=== PATIENT | female | born 1990 | race Caucasian/White ===

== ENCOUNTER → 2016-05-02 | Outpatient (CLI) | payer BC, MEDICAID | LOC: RAD 10:30 | PROVIDERS: ATTEND Nurse Practitioner Women's Health | DX: Z34.81 Encounter for supervision of other normal pregnancy, first trimester (principal) | CPT/HCPCS: 76801 ==

== ENCOUNTER 2016-11-28 00:38 | Inpatient (IN) | payer BC, MEDICAID ==
[2016-11-28] MEDS ORDERED: RINGERS SOLUTION,LACTATED 1,000 ML IV PRN (00:42)
[2016-11-28 01:07] LABS: APPEARANCE,URINE SLIGHTLY-CLOUDY; BILIRUBIN,URINE NEGATIVE (NEGATIVE); GLUCOSE, URINE 50 mg/dL (NEGATIVE); KETONES,URINE 20 mg/dL (NEGATIVE); LEUKOCYTE ESTERASE,URINE NEGATIVE (NEGATIVE); NITRITE,URINE NEGATIVE (NEGATIVE); PROTEIN,URINE NEGATIVE (NEGATIVE); URINE SPECIFIC GRAVITY 1.008; UROBILINOGEN,URINE NEGATIVE mg/dL (<2.0)
[2016-11-28 01:31] LABS: URINE METHADONE SCREEN NEGATIVE; URINE OPIATES LOW NEGATIVE; URINE PHENCYCLIDINE SCREEN NEGATIVE
[2016-11-28 01:32] LABS: URINE BARBITURATES SCREEN NEGATIVE
[2016-11-28 01:45] LABS: ABSOLUTE EOSINOPHILS # (AUTO) 0.4 10^3/uL (0.0-0.6); ABSOLUTE LYMPHOCYTES (AUTO) 2.3 10^3/uL (0.5-4.7); ABSOLUTE MONOCYTES (AUTO) 0.7 10^3/uL (0.1-1.4); ABSOLUTE NEUT (AUTO) 7.8 10^3/uL (1.7-8.2); BASOPHILS % (AUTO) 0.2 % (0-2); EOSINOPHILS % (AUTO) 3.2 % (0-6); HEMATOCRIT 34.9 % (36.0-47.0); HEMOGLOBIN 11.9 g/dL (12.0-15.5); HGB HCT DIFFERENCE 0.8; LYMPHOCYTES % (AUTO) 20.4 % (13-45); MEAN CORPUSCULAR HEMOGLOBIN 29.3 pg (27.0-33.4); MEAN CORPUSCULAR HGB CONC 34.1 g/dL (32.0-36.0); MEAN CORPUSCULAR VOLUME 86 fl (80-97); MONOCYTES % (AUTO) 6.3 % (3-13); RED BLOOD COUNT 4.06 10^6/uL (3.72-5.28); RED CELL DISTRIBUTION WIDTH 13.6 % (11.5-14.0); SEGMENTED NEUTROPHILS % (AUTO) 69.9 % (42-78); WHITE BLOOD COUNT 11.1 10^3/uL (4.0-10.5)
[2016-11-28] MEDS ORDERED: DINOPROSTONE 10 MG VAGINAL INSERT.SR ONE (02:21)
[2016-11-28] MEDS ORDERED: ZOLPIDEM TARTRATE 5 MG TABLET PO ONE (03:05)
[2016-11-28] MEDS ORDERED: ZOLPIDEM TARTRATE 5 MG TABLET ONE (03:15)
--- NOTE | 2016-11-28 08:34 | L&D Progress Notes ---
PROGRESS NOTES Datetime Report Generated by CPN: 11/28/2016 08:33 PROGRESS NOTE Plan: Continue Present Management; Cervical Ripening Informed Consent Obtained: Vaginal Delivery Vital Signs : Reviewed; Within Normal Limits Comment: Resting comfortably, Cat 1 strip, uc's q 2-3 min x 60-[address], Fernandez on unit and aware of current status VAGINAL EXAM Dilatation: 0 Effacement: 0 Station: -3 MEMBRANES Pooling: Negative Membranes: Intact FETUS A FHR - Baseline: 155 Monitoring: External US Variability: Moderate 6-25bpm Accelerations: 15X15 Decelerations: None : 39.0 Estimated Weight (gm): 3500 Presentation: Vertex SIGNATURE SIGNATURE: [id number] Assignment: Marah Fernandez MD Signature: with User ID: [email or web address] : with User ID: [email or web address]
[2016-11-28] MEDS ORDERED: OXYTOCIN/NORMAL SALINE 20 UNIT/1,000 ML RTUINJ ONE ×2 (12:56→18:45)
[2016-11-28] MEDS ORDERED: NALBUPHINE HCL INJ 10 MG/1 ML AMPULE INJ ONE (13:40)
[2016-11-28] MEDS ORDERED: OXYTOCIN/NORMAL SALINE 20 UNIT/1,000 ML RTUINJ IV PRN ×2 (13:42→21:12)
[2016-11-28] MEDS ORDERED: NALBUPHINE HCL INJ 10 MG/1 ML AMPULE ONE (13:49)
--- NOTE | 2016-11-28 16:40 | L&D Progress Notes ---
PROGRESS NOTES Datetime Report Generated by CPN: 11/28/2016 16:39 PROGRESS NOTE Vital Signs : Reviewed; Within Normal Limits Comment: VE 3-4/80/vtx/-1-0, arom, clear fluid continue to monitor closely FETUS C SIGNATURE: [id number] Assignment: Marah Fernandez MD Signature: with User ID: [email or web address] : with User ID: [email or web address]
[2016-11-28] MEDS ORDERED: PHENYLEPHRINE HCL INJ/PF 10 MG/1 ML SDV ONE (16:58)
[2016-11-28] MEDS ORDERED: FENTANYL/BUPIVACAINE/NS/PF 200 MCG/100 ML RTUINJ EPI ONE (16:58)
[2016-11-28] MEDS ORDERED: EPHEDRINE SULFATE INJ 50 MG/1 ML AMPULE ONE (16:58)
[2016-11-28] MEDS ORDERED: FENTANYL CITRATE INJ/PF 100 MCG/2 ML AMPUL ONE (16:58)
[2016-11-28] MEDS ORDERED: BUPIVACAINE HCL 0.25 % INJ/PF (2.5 MG/1 ML) 30 ML VIAL ONE (16:59)
[2016-11-28] MEDS ORDERED: MISOPROSTOL 0.2 MG TABLET ONE (18:45)
[2016-11-28] MEDS ORDERED: LIDOCAINE 1% INJ-PF (10 MG/ML) 30 ML SDV ONE (18:45)
[2016-11-28] MEDS ORDERED: IBUPROFEN 800 MG TABLET ONE (20:26)
--- NOTE | 2016-11-28 20:53 | Delivery Summary ---
Del Sum A-C Datetime Report Generated by CPN: 11/28/2016 20:52 DELIVERY PERSONNEL DELIVERY PERSONNEL: [id number] Delivery Doctor:: Marah Fernandez MD Labor and Delivery Nurse:: Moon Allen RNoperation shift supervisor Nurse:: LEONIDAS Levi Trucking Supervisor/LIFE INSURANCE AGENT: Angela Arce CST Additional Personnel: : Martha Barba RN MATERNAL INFORMATION Delivery Anesthesia: Epidural Medications After Delivery: Pitocin Bolus-Please Comment Meds After Delivery Comment: Pitocin 20 Units/1000ml NSS Estimated Blood Loss (ml): 300 Maternal Complications: Other Other Maternal Complications: GDM Provider Comments: VMI delivered in ALEXANDRO presentation though loose nucal cord. Shoulders and body delivered w/o difficulty. Cord clamped and cut and infant to maternal abdomen for NRP. Placenta delivered intact spontaneously. FF at U. Good hemostasis post laceration repair. Mother and baby stable upon provider leaving the room. Apgars 8/9 LABOR SUMMARY EDC: 12/05/2016 00:00 No. Babies in Womb: 1 Attempted: No Labor Anesthesia: Epidural LABOR INFORMATION Reason for Induction: Maternal Diabetes Onset of Labor: 11/28/2016 18:30 Complete Dilatation: 11/28/2016 18:50 Cervical Ripening Agents: Cervidil Oxytocin: Induction Group B Beta Strep: negative Antibiotics # of Doses: 0 Antibiotics Time of Last Dose: N/A Name of Antibiotic Given: N/A Steroids Given: None Reason Steroids Not Administered: Not Applicable MEMBRANES Membranes Rupture Method: Artificial Rupture of Membranes: 11/28/2016 16:31 Length of Rupture (hr): 2.82 Amniotic Fluid Color: Clear Amniotic Fluid Amount: Moderate Amniotic Fluid Odor: Normal STAGES OF LABOR Stage 1 hr: 0 Stage 1 min: 20 Stage 2 hr: 0 Stage 2 min: 30 Stage 3 hr: 0 Stage 3 min: 2 Total Time in Labor hr: 0 Total Time in Labor min: 52 VAGINAL DELIVERY Episiotomy: None Laceration #1: Perineal Laceration Extension #1: First Degree Laceration #2: Vaginal Laceration #3: Vaginal Other Laceration: Bilateral labial lacerations and 1st degree midline laceration repaired in the usual fashion Laceration Repair: Yes Laceration Repair Note: Bilateral labial lacerations and 1st degree midline laceration repaired in the usual fashion with good hemostasis. Sponge Count Correct: Yes Sharps Count Correct: Yes BABY A INFORMATION Delivery Date/Time: 11/28/2016 19:20 Method of Delivery: Vaginal Born in Route : No : N/A Forceps: N/A Vacuum Extraction: N/A Shoulder Dystocia : No PRESENTATION/POSITION BABY A Presentation: Cephalic Cephalic Presentation: Vertex Vertex Position: Left Occipital Anterior Breech Presentation: N/A PLACENTA INFORMATION BABY A Placenta Delivery Time : 11/28/2016 19:22 Placenta Method of Delivery: Spontaneous Placenta Status: Delivered SCORES BABY A Heart Rate 1 min: >100 bpm Resp Effort 1 min: Good Cry Reflex Irritability 1 min: Cough or Sneeze or Pulls Away Muscle Tone 1 min: Active Motion Color 1 min: Blue/Pale Resuscitation Effort 1 min: Tactile Stimulation SCORE 1 MIN: 8 Heart Rate 5 min: >100 bpm Resp Effort 5 min: Good Cry Reflex Irritability 5 min: Cough or Sneeze or Pulls Away Muscle Tone 5 min: Active Motion Color 5 min: Body [place], Extremities Blue Resuscitation Effort 5 min: Tactile Stimulation SCORE 5 MIN: 9 INFORMATION BABY A Gestational Age at Delivery: 39.0 Gestational Status: Full Term- 39- 40.6 Weeks Outcome : Liveborn Infant Condition : Stable Infant Sex: Male IDENTIFICATION BABY A Infant Verification Date/Time: 11/28/2016 19:38 ID Band Number: [id number] Mother's Name Verified: Yes RN Verifying : Zonia Roberts RN/D. [place] WEIGHT/LENGTH BABY A Infant Birthweight (gm): 3550 Weight (lb): 7 Infant Weight (oz): 13 Length (in): 20.50 Length (cm): 52.07 CORD INFORMATION BABY A No. Cord Vessels: 3 Nuchal Cord : Around Neck x1, Loose Cord Blood Taken: Yes-For Storage (Mom's Blood type +) Suction: None ASSESSMENT BABY A Infant Complications: None Physical Findings at Delivery: Within Normal Limits Skin to Skin: Yes Skin to Skin Time (min): 60 BABY B INFORMATION : N/A SIGNATURES Signature: with User ID: [email or web address]
[2016-11-28] MEDS ORDERED: ACETAMINOPHEN 650 MG SUPP.RECT PR PRN (21:12)
[2016-11-28] MEDS ORDERED: ACETAMINOPHEN WITH CODEINE #3 TABLET PO PRN ×2 (21:12)
[2016-11-28] MEDS ORDERED: ZOLPIDEM TARTRATE 5 MG TABLET PO PRN (21:12)
[2016-11-28] MEDS ORDERED: PROMETHAZINE HCL 25 MG SUPP.RECT PR PRN (21:12)
[2016-11-28] MEDS ORDERED: PROMETHAZINE HCL 25 MG TABLET PO PRN (21:12)
[2016-11-28] MEDS ORDERED: PSEUDOEPHEDRINE HCL 30 MG TABLET PO PRN (21:12)
[2016-11-28] MEDS ORDERED: MEASLES,MUMPS&RUBELLA VACC/PF 0.5 ML VIAL SUBCUT PRN (21:12)
[2016-11-28] MEDS ORDERED: PROMETHAZINE HCL INJ 25 MG/1 ML VIAL IV PRN (21:12)
[2016-11-28] MEDS ORDERED: BENZOCAINE/MENTHOL AEROSOL SPRAY 56 ML TOP PRN (21:12)
[2016-11-28] MEDS ORDERED: GLYCERIN/WITCH HAZEL LEAF 1 EACH MED..PAD TP PRN (21:12)
[2016-11-28] MEDS ORDERED: DIBUCAINE 1% OINTMENT 28 GM TP PRN (21:12)
[2016-11-28] MEDS ORDERED: DIPH/PERTUSS(ACELL)/TETANUS VAC/PF 0.5 ML SYR (>=10YO) IM PRN (21:12)
[2016-11-28] MEDS ORDERED: MAGNESIUM HYDROXIDE SUSP 30 ML UDCUP PO PRN (21:12)
[2016-11-28] MEDS ORDERED: NA PHOS,M-B/NA PHOS,DI-BA (ADULT) 133 ML ENEMA PR PRN (21:12)
[2016-11-28] MEDS ORDERED: DIPHENHYDRAMINE HCL 25 MG CAPSULE PO PRN (21:12)
--- NOTE | 2016-11-28 21:32 | Admission Physical ---
Datetime Report Generated by CPN: 11/28/2016 21:31 CURRENT ADMISSION Chief Complaint: Scheduled Induction of Labor Indication for Induction: Maternal Diabetes Indication for Induction: Term, Intrauterine Admit Plan: Admit to Unit; Initiate Labor Induction Protocol ALLERGIES Medication Allergies: Yes Medication Allergies: Sulfa (Sulfonamide Antibiotics)/SV/Hives (02/10/2016) Latex: No Latex Allergies OBSTETRICAL HISTORY EDC: 12/05/2016 00:00 : 2 Para: 1 Term: 1 : 0 SAB: 0 IAB: 0 Livin Gestational Diabetes: Yes Rh Sensitization: No Incompetent Cervix: No CHRISTIANNE: No Infertility: No ART Treatment: No Uterine Anomaly: No IUGR: No Hx Previous C/S: No Macrosomia: No Hx Loss/Stillborn: No PIH: No Hx : No Placenta Previa/Abruption: No Depression/PP Depression: Yes PTL/PROM: No Post Hemorrhage: No Current Procedures: Ultrasound Obstetrical History Comments: 2011 40 weeks baby boy 2016 current SEE RECORDS Alcohol: No Marijuana : No Cocaine: No Other Illicit Drugs: No Cigarettes: Never Smoker. [id number] MEDICAL HISTORY Diabetes: Yes Diabetes Type: Gestational Diabetes Blood Transfusion: No Pulmonary Disease (Asthma, TB): Yes Breast Disease: No Hypertension: No Neuro Intensivist Physician Surgery: No Heart Disease: No Hosp/Surgery: Yes Autoimmune Disorder: No Anesthetic Complications: No Kidney Disease: No Abnormal Pap Smear: No Neuro/Epilepsy: No Psychiatric Disorders: No Other Medical Diseases: No Hepatitis/Liver Disease: No Significant Family History: No Varicosities/Phlebitis: No Trauma/Violence : No Thyroid Dysfunction: No Medical History Comments: 2013 surgery-Mastoidectomy INFECTIOUS HISTORY Gonorrhea: No Genital Herpes: No Chlamydia: No Tuberculosis: No Syphilis: No Hepatitis: No HIV/AIDS Exposure: No Rash or Viral Illness: No HPV: No PHYSICAL EXAM General: Normal HEENT: Normal Neurologic: Normal Thyroid: Normal Heart: Normal Lungs: Normal Breast: Normal Back: Normal Abdomen: Normal Genitourinary Exam: Normal Extremities: Normal DTRs: Normal Pelvic Type: Adequate Vital Signs: Reviewed VAGINAL EXAM Dilatation: 0 Effacement: 0 Station: -3 MEMBRANES Pooling: Negative Membranes: Intact FETUS A EGA: 39.0 Monitoring: External US FHR- Baseline: 150 Variability: Moderate 6-25bpm Accelerations: 15X15 Decelerations: None FHR Category: Category I Estimated Weight (gm): 3500 Presentation: Vertex PLANS FOR LABOR AND DELIVERY Labor and Delivery: None Pain Management: Epidural Feeding Preference: Formula Benefit of Breast Feed Discussed: Yes Circumcision: Yes INFORMED CONSENT Informed Consent Obtained: Vaginal Delivery Signature: with User ID: [email or web address]
[2016-11-29] MEDS: IBUPROFEN 800 MG TABLET PO SCH ×4 (00:23→21:13)
[2016-11-29] MEDS: FAMOTIDINE 20 MG TABLET PO SCH ×3 (00:23→21:13)
[2016-11-29 07:16] LABS: HEMOGLOBIN 10.7 g/dL (12.0-15.5); HGB HCT DIFFERENCE 1.1; MEAN CORPUSCULAR HEMOGLOBIN 29.7 pg (27.0-33.4); MEAN CORPUSCULAR HGB CONC 34.5 g/dL (32.0-36.0); MEAN CORPUSCULAR VOLUME 86 fl (80-97); RED CELL DISTRIBUTION WIDTH 13.6 % (11.5-14.0); WHITE BLOOD COUNT 14.1 10^3/uL (4.0-10.5)
--- NOTE | 2016-11-29 07:33 | PDOC PROGRESS REPORT ---
Subjective-OB Subjective: Post Delivery Day: 25 year old. Denies any needs at this time Doing well, tired, hsb at BS, eating well, scant bleeding Physical Exam (OB) Vital Signs: Temp Pulse Resp BP Pulse Ox 98.5 F 100 18 116/60 97 11/28/16 21:36 11/28/16 21:38 11/28/16 21:36 11/28/16 21:36 11/28/16 21:36 Intake & Output 11/28/16 11/29/16 11/30/16 06:59 06:59 06:59 Weight 95.75 kg - Lochia Lochia Amount: Small 10-25 ml Lochia Color: Rubra/Red - Abdomen Description: Soft, Round Hernia Present: No Fundal Description: Firm, Midline Fundal Height: u/u - u/2 Objective-Diagnostic Laboratory: 11/29/16 07:09 11/29/16 07:09 WBC 14.1 H RBC 3.60 L Hgb 10.7 L Hct 31.0 L MCV 86 MCH 29.7 MCHC 34.5 RDW 13.6 Plt Count 173 Assessment and Plan(PN) - Assessment and Plan (1) Normal vaginal delivery Is this a current diagnosis for this admission?: Yes (2) Anemia Qualifiers: Anemia type: iron deficiency Is this a current diagnosis for this admission?: Yes - Time Spent with Patient Time with patient: Less than 15 minutes Medications reviewed and adjusted accordingly: Yes - Disposition Anticipated Discharge: Home Within: within 24 hours
[2016-11-29] MEDS: PRENATAL VITAMIN W-O CA NO5/FE FUMARATE/FA CAPSULE PO SCH (09:24)
[2016-11-29] MEDS: FERROUS SULFATE 325 MG TABLET PO SCH ×2 (09:24→17:44)
[2016-11-29] MEDS: DOCUSATE SODIUM 100 MG CAPSULE PO SCH ×2 (09:25→17:43)
[2016-11-29] MEDS: SENNOSIDES/DOCUSATE 8.6-50 MG 1 EACH TABLET PO SCH (09:25)
[2016-11-30] MEDS: IBUPROFEN 800 MG TABLET PO SCH (06:09)
[2016-11-30 08:40] VITALS: BP 113/64
[2016-11-30] MEDS: FERROUS SULFATE 325 MG TABLET PO SCH (09:50)
[2016-11-30] MEDS: SENNOSIDES/DOCUSATE 8.6-50 MG 1 EACH TABLET PO SCH (09:50)
[2016-11-30] MEDS: PRENATAL VITAMIN W-O CA NO5/FE FUMARATE/FA CAPSULE PO SCH (09:50)
[2016-11-30] MEDS: DOCUSATE SODIUM 100 MG CAPSULE PO SCH (09:51)
[2016-11-30] MEDS: FAMOTIDINE 20 MG TABLET PO SCH (10:32)
[2016-11-30] MEDS ORDERED: INFLUENZA ADLT QUAD (36MOS+) 2017-18 VAC 0.5 ML SYR IM PRN (11:30)
--- NOTE | 2016-11-30 11:50 | PDOC PROGRESS REPORT ---
Subjective-OB Subjective: Post Delivery Day: 25 year old. Denies any needs at this time Doing well, no c/o ready to go home, scant bleeding, bottle feeding, ambulating Physical Exam (OB) Vital Signs: Temp Pulse Resp BP Pulse Ox 98.1 F 88 18 113/64 99 11/30/16 08:46 11/30/16 08:46 11/30/16 08:46 11/30/16 07:49 11/30/16 08:46 - PIH/Pre-Eclampsia DTR's: 2 + Clonus: Negative Headache: Absent Epigastric Pain: No Visual Changes: No - Lochia Lochia Amount: Scant < 10 ml Lochia Color: Rubra/Red - Abdomen Description: Soft, Round Hernia Present: No Fundal Description: Firm, Midline Fundal Height: u/u - u/2 Objective-Diagnostic Laboratory: 11/29/16 07:09 Assessment and Plan(PN) - Assessment and Plan (1) Normal vaginal delivery Is this a current diagnosis for this admission?: Yes (2) Anemia Qualifiers: Anemia type: iron deficiency Is this a current diagnosis for this admission?: Yes - Time Spent with Patient Time with patient: Less than 15 minutes Medications reviewed and adjusted accordingly: Yes - Disposition Anticipated Discharge: Home Within: Other - home today
--- NOTE | 2016-11-30 11:53 | PDOC DISCHARGE SUMMARY ---
Final Diagnosis Discharge Date: 11/30/16 - Final Diagnosis (1) Normal vaginal delivery Is this a current diagnosis for this admission?: Yes (2) Anemia Is this a current diagnosis for this admission?: Yes Discharge Data - Discharge Medication Home Medications: Albuterol Sulfate [Proair HFA] 2 puff IH Q4 PRN 04/11/14 Fluticasone Propionate [Flonase Nasal [place] 50 Mcg/[place] 16 gm] 1 inh IH DAILY 11/28/16 Fluticasone Propionate [Flovent Diskus] 1 inh IH BID 11/28/16 Vit/Iron Fum/Folic AC [ Tablet] 1 tab PO DAILY 11/28/16 Gestational Age: 39 Reason(s) for Admission: Induction of Labor, Gestional Diabetes Procedures: NST, Ultrasound Intrapartum Procedure(s): Spontaneous Vaginal Delivery Complication(s): Laceration-Perineal, Laceration-Labial Laceration-Degree: 1st - [place] Data Baby 1 Male at 1 minute: 8 at 5 minutes: 9 Weight: 3.544 kg Home with Mother: Yes Complications: No - Diagnosis Test Laboratory: Temp Pulse Resp BP Pulse Ox 98.1 F 88 18 113/64 99 11/30/16 08:46 11/30/16 08:46 11/30/16 08:46 11/30/16 07:49 11/30/16 08:46 11/28/16 11/28/16 11/29/16 00:50 01:18 07:09 RBC 4.06 3.60 L Hgb 11.9 L 10.7 L Hct 34.9 L 31.0 L Urine Opiates Screen NEGATIVE - Discharge information/Instructions Discharge Activity: Activity As Tolerated, No Lifting Over 10 Pounds, Pelvic Rest Discharge Diet: As Tolerated, Regular Disposition: HOME, SELF-CARE Follow up with: [facility] in: 4, Weeks
== END 2016-11-30 14:56 | disposition home or self-care (01) | DRG 775 ==
LOC: LR 00:38 → 2S 21:30
PROVIDERS: ADMIT Obstetrics & Gynecology; ATTEND Student in an Organized Health Care Education/Training Program
PROC: 10E0XZZ Delivery of Products of Conception, External Approach (ICD-10-PCS; principal; 2016-11-28)
PROC: 0HQ9XZZ Repair Perineum Skin, External Approach (ICD-10-PCS; 2016-11-28)
PROC: 3E0234Z Introduction of Serum, Toxoid and Vaccine into Muscle, Percutaneous Approach (ICD-10-PCS; 2016-11-30)
PROC: 3E0234Z Introduction of Serum, Toxoid and Vaccine into Muscle, Percutaneous Approach (ICD-10-PCS; 2016-11-30)
DX: O24.429 Gestational diabetes mellitus in childbirth, unspecified control (principal); O99.02 Anemia complicating childbirth; O70.0 First degree perineal laceration during delivery; O69.81X0 Labor and delivery complicated by cord around neck, without compression, not applicable or unspecified; D50.9 Iron deficiency anemia, unspecified; Z23 Encounter for immunization; Z3A.39 39 weeks gestation of pregnancy; Z37.0 Single live birth; Z88.2 Allergy status to sulfonamides
CPT/HCPCS: 36415; 80307; 81005; 85025; 85027; 86592; 86850; 86900; 86901; 90686; 90707; 94760; J2300; J2370; J2590; J3010; J3490

== ENCOUNTER 2017-01-20 21:14 | Observation (INO) | payer BC, MEDICAID ==
--- NOTE | 2017-01-20 22:43 | ER Document Report ---
ED GI/ - General Chief Complaint: Abdominal Pain Stated Complaint: PELVIC PAIN Time Seen by Provider: 01/20/17 22:22 Notes: Patient is a 26-year-old female that comes emergency department for chief complaint of lower abdomen/pelvic pain for the past several days but worsening. She had an IUD placed by Dr. Fernandez 5 days ago. She reports mild vaginal bleeding/spotting. She reports minimal discharge. She denies fever/chills, nausea/vomiting. She states she felt for the strings and could not feel them. She has had an IUD before. TRAVEL OUTSIDE OF THE [place] IN LAST 30 DAYS: No - Related Data Allergies/Adverse Reactions: Sulfa (Sulfonamide Antibiotics) Allergy (Severe, Verified 02/10/16 17:53) Hives Past Medical History - General Information source: Patient - Social History Smoking Status: Never Smoker Frequency of alcohol use: None Drug Abuse: None Lives with: Family Family History: Reviewed & Not Pertinent Patient has suicidal ideation: No Patient has homicidal ideation: No - Past Medical History Cardiac Medical History: Denies: Hx Coronary Artery Disease, Hx Heart Attack, Hx Hypertension Pulmonary Medical History: Reports: Hx Asthma, Hx Bronchitis Denies: Hx COPD, Hx Pneumonia Neurological Medical History: Denies: Hx Cerebrovascular Accident, Hx Seizures Renal/ Medical History: Denies: Hx Peritoneal Dialysis Musculoskeltal Medical History: Denies Hx Arthritis Psychiatric Medical History: Reports: Hx Depression Surgical Hx: Negative Past Surgical History: Denies: Hx Hysterectomy - Immunizations Hx Diphtheria, Pertussis, Tetanus Vaccination: Yes Review of Systems - Review of Systems Constitutional: No symptoms reported EENT: No symptoms reported Cardiovascular: No symptoms reported Respiratory: No symptoms reported Gastrointestinal: See HPI Genitourinary: See HPI Female Genitourinary: See HPI Musculoskeletal: No symptoms reported Skin: No symptoms reported Hematologic/Lymphatic: No symptoms reported Neurological/Psychological: No symptoms reported Physical Exam - Vital signs Vitals: Temp Pulse Resp BP Pulse Ox 97.9 F 83 16 124/88 H 100 01/20/17 21:41 01/20/17 21:41 01/20/17 21:41 01/20/17 21:41 01/20/17 21:41 Interpretation: Normal - General General appearance: Appears well, Alert In distress: None - HEENT Head: Normocephalic, Atraumatic Eyes: Normal Pupils: PERRL - Respiratory Respiratory status: No respiratory distress Chest status: Nontender Breath sounds: Normal Chest palpation: Normal - Cardiovascular Rhythm: Regular Heart sounds: Normal auscultation Murmur: No - Abdominal Inspection: Normal Distension: No distension Bowel sounds: Normal Tenderness: Tender - There is tenderness in both lower abdomen/pelvic quadrants , no specific guarding, no rebound tenderness, no rigidity. Patient winces with palpation. - Genitourinary External exam: Normal Speculum exam: Cervix closed, Vaginal discharge - Minimal whitish vaginal discharge Vaginal bleeding: None Bimanuel exam: No: Cervical motion tender - Back Back: Normal, Nontender - Extremities General upper extremity: Normal inspection, Nontender, Normal color, Normal ROM , Normal temperature General lower extremity: Normal inspection, Nontender, Normal color, Normal ROM , Normal temperature, Normal weight bearing. No: Jeff's sign - Neurological Neuro grossly intact: Yes Cognition: Normal Orientation: AAOx4 [place] Coma Scale Eye Opening: Spontaneous Wiley Coma Scale Verbal: Oriented Wiley Coma Scale Motor: Obeys Commands Wiley Coma Scale Total: 15 Speech: Normal Motor strength normal: LUE, RUE, LLE, RLE Sensory: Normal - Psychological Associated symptoms: Normal affect, Normal mood - Skin Skin Temperature: Warm Skin Moisture: Dry Skin Color: Normal Course - Re-evaluation Re-evalutation: Patient with bilateral lower pelvic tenderness on exam, she states she feels like it is in the right side worse than the left. This is not specifically identified on my exam. Urinalysis unremarkable, hCG is negative, wet mount unremarkable. I cannot visualize any strings on pelvic examination. Pelvic examination is unremarkable. No current bleeding. Ultrasound with no acute or specific abnormalities. KUB was performed, shows very questionable location of the IUD. Discussed with Dr. Luis, agrees with CAT scan to specify the exact location. IUD is located in the pelvis, outside of the uterus. Discussed with patient. Discussed with Dr. Zarate, ASSOCIATE PROFESSOR PHYSICIAN on-call, patient will be admitted to gynecology service pending being taken to the operating room for removal of the IUD. Patient states satisfaction and is in full agreement with this. She is requesting pain medication now that she knows she is not driving home. Patient will be kept n.p.o., given IV fluids, medication. Last meal was 7:30 PM. - Vital Signs Vital signs: Temp Pulse Resp BP Pulse Ox 98.4 F 89 18 114/64 98 01/21/17 06:04 01/21/17 06:04 01/21/17 06:04 01/21/17 06:04 01/21/17 06:04 - Laboratory Result Diagrams: 01/21/17 02:25 Laboratory results interpreted by me: 01/21/17 02:25 RDW 14.2 H Eosinophils % 6.4 H Discharge - Discharge Clinical Impression: Pelvic pain IUD complication Qualifiers: Device complication type: unspecified Encounter type: initial encounter Qualified Code(s): T83.9XXA - Unspecified complication of genitourinary prosthetic device, implant and graft, initial encounter Condition: Stable Disposition: ADMITTED OBSERVATION Admitting Provider: [facility] Admitted: Labor and Delivery
[2017-01-20] MEDS ORDERED: NAPROXEN 250 MG TABLET PO ONE (22:58)
--- NOTE | 2017-01-21 00:21 | RADIOLOGY REPORT (SQ) ---
EXAM DESCRIPTION: U/S NON OB PEL TV W/DOPPLER COMPLETED DATE/TIME: 01/20/2017 11:57 pm REASON FOR STUDY: sharp right pelvic pain COMPARISON: 06/12/2014. TECHNIQUE: Dynamic and static grayscale images acquired of the pelvis via transvaginal approach and recorded on PACS. Additional selected color Doppler and spectral images recorded. LIMITATIONS: None. FINDINGS: UTERUS: Contour normal. No mass. ENDOMETRIAL STRIPE: No focal or generalized thickening. No masses. IUD not identified. CERVIX: No nabothian cysts. RIGHT OVARY: No abnormal masses. Peripheral subcentimeter cystic follicle distribution. RIGHT OVARY DOPPLER: Normal arterial vascular flow without evidence for torsion. LEFT OVARY: No abnormal masses. Peripheral subcentimeter cystic follicle distribution. LEFT OVARY DOPPLER: Normal arterial vascular flow without evidence for torsion. FREE FLUID: None noted. OTHER: No other significant finding. MEASUREMENTS: UTERUS: 8.5 cm. ENDOMETRIAL STRIPE: 0.6 cm thickness. RIGHT OVARY: 3.7 cm appear LEFT OVARY: 3.9 cm. IMPRESSION: 1. IUD is not sonographically identified, as queried. 2. Atypical ovarian morphology is within normal limits but may also be seen as polycystic ovarian phenomena. TECHNICAL DOCUMENTATION: JOB ID: [id number] [employer]- All Rights Reserved
[2017-01-21 00:42] LABS: APPEARANCE,URINE CLEAR; BILIRUBIN,URINE NEGATIVE (NEGATIVE); GLUCOSE, URINE NEGATIVE (NEGATIVE); KETONES,URINE NEGATIVE (NEGATIVE); LEUKOCYTE ESTERASE,URINE NEGATIVE (NEGATIVE); NITRITE,URINE NEGATIVE (NEGATIVE); PROTEIN,URINE NEGATIVE (NEGATIVE); URINE SPECIFIC GRAVITY 1.008; UROBILINOGEN,URINE NEGATIVE mg/dL (<2.0)
[2017-01-21 01:00] LABS: CHLAM PCR NOT DETECTED (NOT DETECT)
--- NOTE | 2017-01-21 01:49 | RADIOLOGY REPORT (SQ) ---
EXAM DESCRIPTION: KUB/ABDOMEN (SINGLE VIEW) COMPLETED DATE/TIME: 01/21/2017 1:28 am REASON FOR STUDY: pelvis - identify IUD presence/location COMPARISON: None. NUMBER OF VIEWS: One view. TECHNIQUE: Supine radiographic image of the abdomen acquired. LIMITATIONS: None. FINDINGS: BOWEL GAS PATTERN: Normal bowel gas pattern. No dilated loops. Moderate right colonic sto ol retention. CALCIFICATIONS: No suspicious calcifications. SOFT TISSUES: No gross mass or suggestion of organomegaly. HARDWARE: IUD device overlies the left paracentral S2 vertebral body and correlated with concurrent s onogram may indicate uterine expulsion of the IUD. BONES: No acute fracture. No worrisome bone lesions. OTHER: No other significant finding. IMPRESSION: Uterine expulsion/displaced of an IUD. TECHNICAL DOCUMENTATION: JOB ID: [id number] [employer]- All Rights Reserved
[2017-01-21 02:38] LABS: ABSOLUTE EOSINOPHILS # (AUTO) 0.6 10^3/uL (0.0-0.6); ABSOLUTE LYMPHOCYTES (AUTO) 2.6 10^3/uL (0.5-4.7); ABSOLUTE MONOCYTES (AUTO) 0.4 10^3/uL (0.1-1.4); ABSOLUTE NEUT (AUTO) 5.3 10^3/uL (1.7-8.2); BASOPHILS % (AUTO) 0.1 % (0-2); EOSINOPHILS % (AUTO) 6.4 % (0-6); HEMATOCRIT 40.9 % (36.0-47.0); HEMOGLOBIN 13.8 g/dL (12.0-15.5); HGB HCT DIFFERENCE 0.5; LYMPHOCYTES % (AUTO) 29.2 % (13-45); MEAN CORPUSCULAR HEMOGLOBIN 28.6 pg (27.0-33.4); MEAN CORPUSCULAR HGB CONC 33.7 g/dL (32.0-36.0); MEAN CORPUSCULAR VOLUME 85 fl (80-97); MONOCYTES % (AUTO) 4.9 % (3-13); RED BLOOD COUNT 4.81 10^6/uL (3.72-5.28); RED CELL DISTRIBUTION WIDTH 14.2 % (11.5-14.0); SEGMENTED NEUTROPHILS % (AUTO) 59.4 % (42-78)
--- NOTE | 2017-01-21 03:29 | RADIOLOGY REPORT (SQ) ---
EXAM DESCRIPTION: CT PELVIS WITHOUT COMPLETED DATE/TIME: 01/21/2017 3:17 am REASON FOR STUDY: identify location of the IUD COMPARISON: None. TECHNIQUE: CT scan of the pelvis performed without intravenous or oral contrast. Images reviewed wi th soft tissue and bone windows. Reconstructed coronal and sagittal MPR images reviewed. All images stored on PACS. All CT scanners at this facility use dose modulation, iterative reconstruction, and/or weight based d osing when appropriate to reduce radiation dose to as low as reasonably achievable (ALARA). [facility]: Dose Right [facility]: CareDose [facility]: Dose Right [facility]: Teradose 4D [facility]: Smart Cream Style RADIATION DOSE: CT Rad equipment meets quality standard of care and radiation dose reduction techniq ues were employed. CTDIvol: 14.6 mGy. DLP: 421 mGy-cm. mGy. LIMITATIONS: None. FINDINGS: PELVIC BONES: No acute fracture. No worrisome bone lesions. VISUALIZED SPINE: No acute findings. HIP(S): No acute fracture or dislocation. No worrisome bone lesions. PELVIC SOFT TISSUES: No significant findings. Normal appendix. No free fluid. EXTRAPELVIC SOFT TISSUES: No significant findings. OTHER: IUD device in the anterior left paracentral, extra uterine pelvic cavity, anterior to the uter us. IMPRESSION: Intrapelvic, uterine expulsion of an IUD. TECHNICAL DOCUMENTATION: JOB ID: [id number] Quality ID # [id number]: Final reports with documentation of one or more dose reduction techniques (e.g., Au tomated exposure control, adjustment of the mA and/or kV according to patient size, use of iterative reconstruction technique) 2010 [employer]- All Rights Reserved
[2017-01-21] MEDS ORDERED: NORMAL SALINE 1000 ML 1,000 ML IV ONE (04:03)
[2017-01-21] MEDS ORDERED: MORPHINE SULFATE 10 MG/ML INJ IV ONE (04:03)
[2017-01-21] MEDS ORDERED: ONDANSETRON HCL INJ/PF 4 MG/2 ML SDV IV ONE (04:03)
--- NOTE | 2017-01-21 06:38 | HISTORY AND PHYSICAL E ---
History and Physical NAME: ALPESH BAPTISTE : 1990 AGE: 26Y ADMITTED: 01/21/2017 ROOM: 215 CHIEF COMPLAINT: Abdominal pain. HISTORY: Patient is a 26-year-old female, 2, para 2, who had a child vaginally in October and then had an IUD placed 5 days ago. Her last menstrual period is uncertain. She presents to the ER with pain and states she cannot feel the strings. ALLERGIES: SULFA. PAST MEDICAL HISTORY: Significant for some ear surgery. She also reports seasonal allergies and asthma. MEDICATIONS: Includes allergy medication. SOCIAL HISTORY: Shows her to be a nonsmoker. REVIEW OF SYSTEMS: She denies heart or lung problems. PHYSICAL EXAMINATION: VITAL SIGNS: She is afebrile. Vital signs are stable. GENERAL APPEARANCE: Alert, oriented, and appropriate. NECK: Supple. LUNGS: Clear. HEART: Regular rate and rhythm. ABDOMEN: Soft. PELVIC: Normal external genitalia. Cervix is without lesions and no strain can be seen. EXTREMITIES: No clubbing, cyanosis, or edema. LABORATORY STUDIES: A normal white count and normal hemoglobin, hematocrit. X-ray studies the most pertinent shows a CT with an IUD present anterior to the uterus and the sono showing no IUD in the uterus. ASSESSMENT: Complication from an IUD. PLAN: Since it cannot be removed vaginally, we will proceed with laparoscopy for removal of the IUD. DICTATING PHYSICIAN: ISRAEL BLACKWOOD M.D. [id number] Y#: [id number] ID: [id number] JOB#: [id number] ACCT: [id number] cc:ISRAEL BLACKWOOD M.D. >
[2017-01-21] MEDS ORDERED: LIDOCAINE 2% INJ-PF (20 MG/ML) 10 ML AMPUL ONE (07:08)
[2017-01-21] MEDS ORDERED: PROPOFOL INJ 200 MG/20 ML VIAL IV ONE (07:09)
[2017-01-21] MEDS ORDERED: MIDAZOLAM 2 MG/2 ML INJ ONE (07:09)
[2017-01-21] MEDS ORDERED: ONDANSETRON HCL INJ/PF 4 MG/2 ML SDV ONE (07:09)
[2017-01-21] MEDS ORDERED: DEXAMETHASONE SOD PHOSPHATE INJ 4 MG/1 ML VIAL ONE ×2 (07:09→12:42)
[2017-01-21] MEDS ORDERED: FENTANYL CITRATE INJ/PF 100 MCG/2 ML AMPUL ONE (07:09)
[2017-01-21] MEDS ORDERED: IBUPROFEN INJ 800 MG/8 ML VIAL IV ONE (07:09)
[2017-01-21] MEDS ORDERED: RINGERS SOLUTION,LACTATED 1,000 ML IV PRN (07:53)
[2017-01-21] MEDS ORDERED: LIDOCAINE 1%/EPINEPHRINE INJ 20 ML VIAL ONE (08:32)
[2017-01-21] MEDS ORDERED: SCOPOLAMINE HYDROBROMIDE 1.5 MG PATCH.TD72 ONE (08:47)
[2017-01-21] MEDS ORDERED: HYDROMORPHONE HCL INJ/PF 2 MG/ML AMPULE ONE (08:53)
[2017-01-21] MEDS ORDERED: ACETAMINOPHEN 100 ML IV ONE (08:53)
[2017-01-21] MEDS ORDERED: DIPHENHYDRAMINE HCL 50 MG/ML VIAL IV PRN (09:35)
[2017-01-21] MEDS ORDERED: MEPERIDINE HCL/PF INJ 25 MG/1 ML DISP.SYRIN IV PRN (09:35)
[2017-01-21] MEDS ORDERED: ONDANSETRON HCL INJ/PF 4 MG/2 ML SDV IV PRN (09:35)
[2017-01-21] MEDS ORDERED: FENTANYL CITRATE INJ/PF 100 MCG/2 ML AMPUL IV PRN ×3 (09:35)
[2017-01-21] MEDS ORDERED: PROMETHAZINE HCL INJ 25 MG/1 ML VIAL IV PRN ×2 (09:35)
--- NOTE | 2017-01-21 09:47 | OPERATIVE REPORT E ---
Operative Report NAME: ALPESH BAPTISTE : 1990 AGE: 26Y DATE OF SURGERY: 01/21/2017 ROOM: 215 PREOPERATIVE DIAGNOSIS: Perforated intrauterine device. POSTOPERATIVE DIAGNOSIS: Perforated intrauterine device. SURGEON: RD BIRD M.D. ANESTHESIA: Dr. Cope with general endotracheal. FINDINGS: IUD in its entirety and including the strings was located easily, slightly wrapped in the omentum in the anterior cul-de-sac just above the uterus on the patient's left side. COMPLICATIONS: None. ESTIMATED BLOOD LOSS: 10 mL. SPECIMENS REMOVED: None. PROCEDURE: Laparoscopic removal of perforated IUD. PROCEDURE IN DETAIL: The patient was taken to the operating room and prepared and draped in a normal sterile fashion in the dorsal lithotomy position. Under sterile conditions, an in-and-out cath was performed of approximately 100 mL of clear urine. Sterile speculum was then placed in the vagina and the anterior lip of the cervix was grasped with a single-toothed tenaculum and the Hulka clamp was transected through the cervix for uterine manipulation. Gloves were changed and attention was then turned to the upper portion of the case where an umbilical skin incision was made to accommodate a 5 mm port. Through this incision, the peritoneal cavity was entered with a Veress needle and a free flow of sterile water confirmed peritoneal entry as well as opening pressure of less than 3 mmHg once gas was applied. The abdomen was then insufflated with approximately 2 L of CO2 gas to a pressure of 13 mmHg and a 5 mm port was placed through this incision. Camera was introduced and the IUD was immediately located. Another 5 mm port was placed under direct visualization without difficulty and the IUD was then grasped with an atraumatic grasper and loosened from the omentum and removed through the same 5 mm port. The rest of the abdomen was inspected. The uterus was elevated with the Hulka clamp to inspect for area of perforation that was found to be on the right fundus, but the perforated area was healed well with no bleeding and no other trauma noted. The trocars were then removed under direct visualization and the abdomen was deflated of CO2 gas through the umbilical trocar. The skin was then closed at both sites with 4-0 Monocryl. The patient tolerated the procedure well. Sponge, lap, and needle counts were correct x2, and patient was taken to recovery in stable condition. DICTATING PHYSICIAN: RD BIRD M.D. [id number] PHY#: [id number] ID: [id number] JOB#: [id number] ACCT: [id number] cc:RD BIRD M.D. >
[2017-01-21] MEDS ORDERED: OXYCODONE-ACETAMINOPHEN 5-325 MG TABLET PO PRN (10:07)
[2017-01-21] MEDS ORDERED: IBUPROFEN 800 MG TABLET PO PRN (10:07)
[2017-01-21] MEDS ORDERED: MORPHINE SULFATE 10 MG/ML INJ IM PRN (10:08)
[2017-01-21] MEDS ORDERED: SUCCINYLCHOLINE CHLORIDE INJ 200 MG/10 ML VIAL ONE (12:42)
[2017-01-21] MEDS ORDERED: GLYCOPYRROLATE INJ 0.4 MG/2 ML VIAL ONE (12:42)
[2017-01-21] MEDS ORDERED: ROCURONIUM BROMIDE INJ 50 MG/5 ML VIAL IV ONE (12:42)
[2017-01-21] MEDS ORDERED: METOCLOPRAMIDE HCL INJ/PF 10 MG/2 ML SDV ONE (12:42)
[2017-01-21] MEDS ORDERED: NEOSTIGMINE METHYLSULFATE 10 MG/10 ML VIAL ONE (12:42)
[2017-01-21 13:32] VITALS: BP 128/65
== END 2017-01-21 14:21 | disposition home or self-care (01) ==
LOC: ER 21:14 → EH 01-21 04:13 → 2S 01-21 05:53
PROVIDERS: ADMIT Obstetrics & Gynecology; ATTEND Obstetrics & Gynecology
PROC: 0UPD4HZ Removal of Contraceptive Device from Uterus and Cervix, Percutaneous Endoscopic Approach (ICD-10-PCS; principal; 2017-01-21 10:00)
DX: T83.39XA Other mechanical complication of intrauterine contraceptive device, initial encounter (principal); Y84.8 Other medical procedures as the cause of abnormal reaction of the patient, or of later complication, without mention of misadventure at the time of the procedure; Z32.02 Encounter for pregnancy test, result negative
CPT/HCPCS: 99285; 96361; 96374; 96375; 86900; 86901; 36415; 87210; 86850; 85025; 81025; 81001; 87491; 87591; 74000; 76830; 93976; 72192; 58301; G0378 ×2; J2250; J3490 ×6; J1100; J3010; J2765; J2270; J0330; J2405; J7030; J2704; J0131; J1741; 840; J1170

== ENCOUNTER 2018-01-13 12:18 | Emergency (ER) | payer SELFPAY ==
[2018-01-13] MEDS ORDERED: ASPIRIN 81 MG TABLET, CHEWABLE PO ONE (12:56)
--- NOTE | 2018-01-13 12:58 | ER Document Report ---
ED Medical Screen (RME) - General Chief Complaint: Chest Tightness Stated Complaint: CHEST TIGHTNESS Time Seen by Provider: 01/13/18 12:56 Notes: 27 years old female presents today with having left arm pain in the last 2-3 days having chest tightness and chest pain. She had a fall a few days ago. But she claims that whenever she moves her arm the pain does not come on. Not related. Nauseous no vomiting. Denies any palpitation or diaphoresis. No chest wall tenderness or left arm tenderness on palpation noted. TRAVEL OUTSIDE OF THE [place] IN LAST 30 DAYS: No - Related Data Allergies/Adverse Reactions: Sulfa (Sulfonamide Antibiotics) Allergy (Severe, Verified 01/13/18 12:20) Hives Past Medical History - Social History Chew tobacco use (# tins/day): No Frequency of alcohol use: Occasional Drug Abuse: None - Past Medical History Cardiac Medical History: Denies: Hx Coronary Artery Disease, Hx Heart Attack, Hx Hypertension Pulmonary Medical History: Reports: Hx Asthma, Hx Bronchitis Denies: Hx COPD, Hx Pneumonia Neurological Medical History: Denies: Hx Cerebrovascular Accident, Hx Seizures Renal/ Medical History: Denies: Hx Peritoneal Dialysis Musculoskeltal Medical History: Denies Hx Arthritis Psychiatric Medical History: Reports: Hx Depression Past Surgical History: Denies: Hx Hysterectomy - Immunizations Hx Diphtheria, Pertussis, Tetanus Vaccination: Yes History of Influenza Vaccine for 11/2016 - 04/2017 Season: Yes Influenza Administration Date for 11/2016 - 04/2017 Season: 11/30/16 Physical Exam - Vital signs Vitals: Temp Pulse Resp BP Pulse Ox 98.6 F 68 18 123/76 100 01/13/18 12:31 01/13/18 12:31 01/13/18 12:31 01/13/18 12:31 01/13/18 12:31 Course - Vital Signs Vital signs: Temp Pulse Resp BP Pulse Ox 98.6 F 68 18 123/76 100 01/13/18 12:31 01/13/18 12:31 01/13/18 12:31 01/13/18 12:31 01/13/18 12:31 Doctor's Discharge - Discharge Referrals: JASPREET ARREOLA MD [Primary Care Provider] - Follow up as needed
[2018-01-13 13:36] LABS: ABSOLUTE EOSINOPHILS # (AUTO) 0.5 10^3/uL (0.0-0.6); ABSOLUTE MONOCYTES (AUTO) 0.4 10^3/uL (0.1-1.4); ABSOLUTE NEUT (AUTO) 3.5 10^3/uL (1.7-8.2); BASOPHILS % (AUTO) 0.7 % (0-2); HEMATOCRIT 45.3 % (36.0-47.0); HEMOGLOBIN 15.3 g/dL (12.0-15.5); LYMPHOCYTES % (AUTO) 40.2 % (13-45); MEAN CORPUSCULAR HEMOGLOBIN 29.8 pg (27.0-33.4); MEAN CORPUSCULAR HGB CONC 33.9 g/dL (32.0-36.0); MEAN CORPUSCULAR VOLUME 88 fl (80-97); MONOCYTES % (AUTO) 5.7 % (3-13); RED BLOOD COUNT 5.15 10^6/uL (3.72-5.28); RED CELL DISTRIBUTION WIDTH 13.4 % (11.5-14.0); SEGMENTED NEUTROPHILS % (AUTO) 46.4 % (42-78); TOTAL CELLS COUNTED % (AUTO) 100 %; WHITE BLOOD COUNT 7.5 10^3/uL (4.0-10.5)
--- NOTE | 2018-01-13 13:40 | RADIOLOGY REPORT (SQ) ---
EXAM DESCRIPTION: CHEST SINGLE VIEW COMPLETED DATE/TIME: 01/13/2018 1:25 pm REASON FOR STUDY: chest COMPARISON: January 2016 EXAM PARAMETERS: NUMBER OF VIEWS: One view. TECHNIQUE: Single frontal radiographic view of the chest acquired. RADIATION DOSE: NA LIMITATIONS: None. FINDINGS: LUNGS AND PLEURA: No opacities, masses or pneumothorax. No pleural effusion. MEDIASTINUM AND HILAR STRUCTURES: No masses. Contour normal. HEART AND VASCULAR STRUCTURES: Heart normal in size. Normal vasculature. BONES: No acute findings. HARDWARE: None in the chest. OTHER: No other significant finding. IMPRESSION: NO ACUTE RADIOGRAPHIC FINDING IN THE CHEST. TECHNICAL DOCUMENTATION: JOB ID: [id number] [employer]- All Rights Reserved Reading location - IP/workstation name: [email or web address]
[2018-01-13 14:01] LABS: PLATELET COUNT 306 10^3/uL (150-450)
--- NOTE | 2018-01-13 14:12 | ER Document Report ---
ED General - General Chief Complaint: Chest Tightness Stated Complaint: CHEST TIGHTNESS Time Seen by Provider: 01/13/18 12:56 TRAVEL OUTSIDE OF THE [place] IN LAST 30 DAYS: No - HPI Notes: Patient is a 27-year-old female that presents to the emergency department for chief complaint of chest tightness. Patient reports 4 days of a tight heavy feeling in her chest. She denies any aggravating factors. She did try albuterol inhaler one time yesterday which gave her minimal relief. She denies any cough fever or congestion. She denies ever needing admitted to the hospital for her asthma in the past. She was seen in an urgent care facility yesterday who recommended coming to the emergency room to obtain an EKG. Patient also is complaining of some abdominal pain around her umbilical hernia. That pain is intermittent and sharp. She states she has tried to push the hernia back in and usually is able to. She denies any nausea vomiting or diarrhea. Past Medical History: Asthma Past Surgical History: Negative Social History: Denies drugs alcohol and tobacco Family History: Reviewed and noncontributory for presenting illness Allergies: Reviewed, see documented allergy list. REVIEW OF SYSTEMS: CONSTITUTIONAL : No fever No chills No diaphoresis No recent illness EENT: No vision changes No congestion No sore throat CARDIOVASCULAR: chest pain No palpitations RESPIRATORY: No shortness of breath No cough No difficulty breathing GASTROINTESTINAL: abdominal pain No nausea No vomiting No diarrhea GENITOURINARY: No dysuria No hematuria No difficulty urinating MUSCULOSKELETAL: No back pain No leg pain No arm pain SKIN: No rashes No lesions LYMPHATIC: No swollen, enlarged glands. NEUROLOGICAL: No lightheadedness No headache No weakness No paresthesias PSYCHIATRIC: No anxiety No depression PHYSICAL EXAMINATION: Vital signs reviewed, nursing noted reviewed. GENERAL: Well-appearing, well-nourished and in no acute distress. HEAD: Atraumatic, normocephalic. EYES: Eyes appear normal, extraocular movements intact, sclera anicteric, conjunctiva are normal. ENT: nares patent, oropharynx clear without exudates. Moist mucous membranes. NECK: Normal range of motion, supple without lymphadenopathy LUNGS: Wheezing to auscultation bilaterally and equal. HEART: Regular rate and rhythm without murmurs ABDOMEN: Soft easily reducible small umbilical hernia. Abdomen soft, nontender , normoactive bowel sounds. No rebound, guarding, or rigidity. No masses appreciated. EXTREMITIES: Nontender, good range of motion, no pitting or edema. NEUROLOGICAL: No focal neurological deficits. Moves all extremities spontaneously Motor and sensory grossly intact on exam. PSYCH: Normal mood, normal affect. SKIN: Warm, Dry, normal turgor, no rashes or lesions noted on exposed skin - Related Data Allergies/Adverse Reactions: Sulfa (Sulfonamide Antibiotics) Allergy (Severe, Verified 01/13/18 12:20) Hives Past Medical History - Social History Smoking Status: Never Smoker Chew tobacco use (# tins/day): No Frequency of alcohol use: Occasional Drug Abuse: None Family History: Reviewed & Not Pertinent Patient has suicidal ideation: No Patient has homicidal ideation: No - Past Medical History Cardiac Medical History: Denies: Hx Coronary Artery Disease, Hx Heart Attack, Hx Hypertension Pulmonary Medical History: Reports: Hx Asthma, Hx Bronchitis Denies: Hx COPD, Hx Pneumonia Neurological Medical History: Denies: Hx Cerebrovascular Accident, Hx Seizures Renal/ Medical History: Denies: Hx Peritoneal Dialysis Musculoskeletal Medical History: Denies Hx Arthritis Psychiatric Medical History: Reports: Hx Depression Past Surgical History: Denies: Hx Hysterectomy - Immunizations Hx Diphtheria, Pertussis, Tetanus Vaccination: Yes Review of Systems - Review of Systems Notes: Dictated Physical Exam - Vital signs Vitals: Temp Pulse Resp BP Pulse Ox 98.6 F 68 18 123/76 100 01/13/18 12:31 01/13/18 12:31 01/13/18 12:31 01/13/18 12:31 01/13/18 12:31 - Notes Notes: Dictated Course - Re-evaluation Re-evalutation: 01/13/18 14:38 Vitals reviewed. Nursing notes reviewed. EKG shows no acute ischemic changes. Patient has tightness diffusely in her chest and is wheezing. She was given DuoNeb for asthma exacerbation. Patient also has a small easily reducible and nonincarcerated umbilical hernia. Patient's chest tightness is from asthma exacerbation and is not related to ACS. Chest x-ray showed no pneumothorax, pneumonia, or other acute process. Patient encouraged to use her home albuterol every 4 hours for the next few days. She will follow with her primary care provider for reevaluation in a few days. I did educate her on reducing her umbilical hernia and symptoms to return to the emergency room. Discharged home in stable condition. Laboratory 01/13/18 01/13/18 01/13/18 13:00 13:00 13:00 WBC 7.5 RBC 5.15 Hgb 15.3 Hct 45.3 MCV 88 MCH 29.8 MCHC 33.9 RDW 13.4 Plt Count 306 Seg Neutrophils % 46.4 Lymphocytes % 40.2 Monocytes % 5.7 Eosinophils % 7.0 H Basophils % 0.7 Absolute Neutrophils 3.5 Absolute Lymphocytes 3.0 Absolute Monocytes 0.4 Absolute Eosinophils 0.5 Absolute Basophils 0.0 Sodium Cancelled Potassium Cancelled Chloride Cancelled Carbon Dioxide Cancelled Anion Gap Cancelled BUN Cancelled Creatinine Cancelled Est GFR ( Amer) Cancelled Est GFR (Non-Af Amer) Cancelled Glucose Cancelled Calcium Cancelled Total Bilirubin Cancelled Direct Bilirubin Cancelled Neonat Total Bilirubin Cancelled Neonat Direct Bilirubin Cancelled Neonat Indirect Bili Cancelled AST Cancelled ALT Cancelled Alkaline Phosphatase Cancelled Creatine Kinase Cancelled CK-MB (CK-2) Cancelled Troponin I Cancelled Total Protein Cancelled Albumin Cancelled Chest X-Ray 01/13/18 12:56 IMPRESSION: NO ACUTE RADIOGRAPHIC FINDING IN THE CHEST. - Vital Signs Vital signs: Temp Pulse Resp BP Pulse Ox 98.6 F 68 18 123/76 100 01/13/18 12:31 01/13/18 12:31 01/13/18 12:31 01/13/18 12:31 01/13/18 12:31 - Laboratory Result Diagrams: 01/13/18 13:00 01/13/18 14:11 Laboratory results interpreted by me: 01/13/18 13:00 Eosinophils % 7.0 H - EKG Interpretation by Me Additional EKG results interpreted by me: 01/13/18 14:11 Interpreted by myself 1225: Normal sinus rhythm, rate 66, normal axis, no ectopy, no WPW, no Wellons or Brugada, no ST elevation Discharge - Discharge Clinical Impression: Chest tightness Asthma exacerbation Qualifiers: Asthma severity: mild Asthma persistence: intermittent Qualified Code(s): J45.21 - Mild intermittent asthma with (acute) exacerbation Umbilical hernia Qualifiers: Obstruction and gangrene presence: without obstruction or gangrene Qualified Code(s): K42.9 - Umbilical hernia without obstruction or gangrene Condition: Stable Disposition: HOME, SELF-CARE Instructions: Asthma ([facility]), Chest Wall Pain ([facility]), Umbilical Hernia ([facility]) Additional Instructions: Please return to the emergency department if you have any worsening, or concern of your symptoms. Please return to the emergency department if you develop chest pain, difficulty breathing, severe abdominal pain, or ongoing vomiting. Please follow-up with your primary care physician in 2-3 days and any other recommended physicians. If prescribed, take all medications as directed. If you have any questions or concerns do not hesitate to return the emergency department for evaluation. [] Referrals: JASPREET ARREOLA MD [COMMUNITY BASED STAFF] - Follow up in 3-5 days
[2018-01-13] MEDS ORDERED: IPRATROPIUM/ALBUTEROL 0.5-2.5 MG/3 ML AMPUL NEB ONE (14:35)
[2018-01-13 14:39] LABS: ALANINE AMINOTRANSFERASE 27 U/L (9-52); ALBUMIN 4.3 g/dL (3.5-5.0); ALKALINE PHOSPHATASE 47 U/L (38-126); ANION GAP 9 (5-19); ASPARTATE AMINO TRANSFERASE 24 U/L (14-36); BILIRUBIN,DIRECT 0.3 mg/dL (0.0-0.4); BILIRUBIN,TOTAL 0.6 mg/dL (0.2-1.3); BLOOD UREA NITROGEN 11 mg/dL (7-20); CALCIUM 9.3 mg/dL (8.4-10.2); CARBON DIOXIDE 28 mmol/L (22-30); CHLORIDE 104 mmol/L (98-107); CREATINE KINASE 58 U/L (30-135); GLUCOSE 91 mg/dL (75-110); POTASSIUM 4.4 mmol/L (3.6-5.0); SODIUM 141.3 mmol/L (137-145); TOTAL PROTEIN 7.1 g/dL (6.3-8.2)
[2018-01-13 14:51] LABS: CREATINE KINASE MB 0.32 ng/mL (<4.55)
[2018-01-13 14:53] LABS: TROPONIN I < 0.012 ng/mL
[2018-01-13 15:48] VITALS: BP 113/66
--- NOTE | 2018-01-14 09:03 | EKG REPORT ---
SEVERITY:- NORMAL ECG - SINUS RHYTHM : Confirmed by: Anisa Bergeron 14-Jan-2018 09:02:01
== END 2018-01-13 15:49 | disposition home or self-care (01) ==
LOC: ER 12:18
DX: J45.21 Mild intermittent asthma with (acute) exacerbation (principal); R07.89 Other chest pain; K42.9 Umbilical hernia without obstruction or gangrene; R10.33 Periumbilical pain; Z88.2 Allergy status to sulfonamides
CPT/HCPCS: 93005; 94640; 99285; 36415; 82553; 82550; 85025; 80053; 84484; 71045; 93010; J7620

== ENCOUNTER 2018-12-04 00:38 | Emergency (ER) | payer SELFPAY ==
--- NOTE | 2018-12-04 01:45 | RADIOLOGY REPORT (SQ) ---
CLINICAL HISTORY: right second toe injury, stubbed when had near syn COMPARISON: None. TECHNIQUE: XR TOES 2 OR MORE VIEWS 12/04/2018 12:00 AM CDT FINDINGS: There is a minimally displaced and angulated fracture of the midshaft of the proximal second phalanx. Joint spaces are preserved. Soft tissues are unremarkable. IMPRESSION: Second digit fracture.
[2018-12-04 02:28] LABS: ABSOLUTE EOSINOPHILS # (AUTO) 0.9 10^3/uL (0.0-0.6); ABSOLUTE MONOCYTES (AUTO) 0.6 10^3/uL (0.1-1.4); ABSOLUTE NEUT (AUTO) 7.3 10^3/uL (1.7-8.2); BASOPHILS % (AUTO) 0.4 % (0-2); EOSINOPHILS % (AUTO) 8.4 % (0-6); HEMATOCRIT 43.5 % (36.0-47.0); HEMOGLOBIN 14.7 g/dL (12.0-15.5); LYMPHOCYTES % (AUTO) 18.5 % (13-45); MEAN CORPUSCULAR HEMOGLOBIN 29.4 pg (27.0-33.4); MEAN CORPUSCULAR HGB CONC 33.9 g/dL (32.0-36.0); MEAN CORPUSCULAR VOLUME 87 fl (80-97); MONOCYTES % (AUTO) 5.1 % (3-13); PLATELET COUNT 329 10^3/uL (150-450); RED BLOOD COUNT 5.02 10^6/uL (3.72-5.28); SEGMENTED NEUTROPHILS % (AUTO) 67.6 % (42-78); TOTAL CELLS COUNTED % (AUTO) 100 %; WHITE BLOOD COUNT 10.9 10^3/uL (4.0-10.5)
[2018-12-04 02:56] LABS: ALBUMIN 4.2 g/dL (3.5-5.0); ALKALINE PHOSPHATASE 57 U/L (38-126); ANION GAP 9 (5-19); ASPARTATE AMINO TRANSFERASE 26 U/L (14-36); BILIRUBIN,DIRECT 0.2 mg/dL (0.0-0.4); BILIRUBIN,TOTAL 0.2 mg/dL (0.2-1.3); BLOOD UREA NITROGEN 15 mg/dL (7-20); CALCIUM 9.6 mg/dL (8.4-10.2); CARBON DIOXIDE 30 mmol/L (22-30); CHLORIDE 100 mmol/L (98-107); GLUCOSE 122 mg/dL (75-110); POTASSIUM 4.5 mmol/L (3.6-5.0); TOTAL PROTEIN 6.7 g/dL (6.3-8.2)
--- NOTE | 2018-12-04 03:37 | ER Document Report ---
ED General - General Chief Complaint: Near Syncope Stated Complaint: SYNCOPAL EPISODE Time Seen by Provider: 12/04/18 02:46 Primary Care Provider: CAMACHO TINAJERO FNP-C [Primary Care Provider] - Follow up as needed Mode of Arrival: Ambulatory Information source: Patient Notes: This 27-year-old female presents emergency department with reports that at around midnight tonight she was laying there got up a little bit lightheaded went to the bathroom and vomited. She also stubbed her toe. Patient reports when she vomited she thinks she may have passed out she is not really sure. Denies past medical history of syncope. Denies recent trauma. Denies abdominal pain. Reports no recent illnesses. Denies fever and diarrhea, reports she has only vomited once tonight. Reports she feels fine now. Patient reports she had the Nexplanon removed last week and she has been sexually active but they do use protection. It is possible she is . TRAVEL OUTSIDE OF THE [place] IN LAST 30 DAYS: No - HPI Onset: Just prior to arrival Onset/Duration: Sudden Quality of pain: Achy Severity: Mild - toe Associated symptoms: Vomiting Relieved by: Denies Similar symptoms previously: No Recently seen / treated by doctor: No - Related Data Allergies/Adverse Reactions: Sulfa (Sulfonamide Antibiotics) Allergy (Severe, Verified 01/13/18 12:20) Hives Past Medical History - General Information source: Patient Last Menstrual Period: just had nexplanon removed, no menses yet - Social History Smoking Status: Never Smoker Chew tobacco use (# tins/day): No Frequency of alcohol use: None Drug Abuse: None Lives with: Family Family History: Reviewed & Not Pertinent Patient has suicidal ideation: No Patient has homicidal ideation: No - Past Medical History Cardiac Medical History: Denies: Hx Coronary Artery Disease, Hx Heart Attack, Hx Hypertension Pulmonary Medical History: Reports: Hx Asthma, Hx Bronchitis Denies: Hx COPD, Hx Pneumonia Neurological Medical History: Denies: Hx Cerebrovascular Accident, Hx Seizures Endocrine Medical History: Reports: Hx Diabetes Mellitus Type 2 - gestational diabetes Renal/ Medical History: Denies: Hx Peritoneal Dialysis Musculoskeletal Medical History: Denies Hx Arthritis Psychiatric Medical History: Reports: Hx Depression Past Surgical History: Reports: Other - Mastoidectomy. Denies: Hx Hysterectomy - Immunizations Hx Diphtheria, Pertussis, Tetanus Vaccination: Yes Review of Systems - Review of Systems Notes: Review HPI for review of systems., All other systems negative Physical Exam - Vital signs Vitals: Temp Pulse Resp BP Pulse Ox 98.5 F 72 16 123/77 99 12/04/18 03:43 12/04/18 03:43 12/04/18 03:43 12/04/18 03:43 12/04/18 03:43 - Notes Notes: PHYSICAL EXAMINATION: GENERAL: Well-appearing and in no acute distress HEAD: Atraumatic, normocephalic. EYES: Pupils equal round and reactive to light, extraocular movements intact, sclera anicteric, conjunctiva are normal. ENT: nares patent, oropharynx clear without exudates. Moist mucous membranes. NECK: Normal range of motion, supple without lymphadenopathy LUNGS: CTAB and equal. No wheezes rales or rhonchi. HEART: Regular rate and rhythm without murmurs ABDOMEN: Soft, no tenderness. No guarding, no rebound EXTREMITIES: Normal range of motion, no pitting edema. No cyanosis. Right second toe tender to palpate no obvious deformity no erythema no warmth no swelling NEUROLOGICAL: Cranial nerves grossly intact. Normal sensory/motor exams. PSYCH: Normal mood, normal affect. SKIN: Warm, Dry, normal turgor, no rashes or lesions noted Course - Re-evaluation Re-evalutation: 12/04/18 03:36 This 27-year-old female presents emergency department with complaints of nausea vomiting x1 and possible syncope. Also reports she stubbed her toe. Patient has a fractured second digit. Nondisplaced. Labs so far are unremarkable. Patient reports she feels fine. Waiting on urine hCG. Urine hCG is negative. Patient was instructed on the importance of follow-up with orthopedics for fracture monica taped was placed. She was instructed to ta ke Motrin for pain. She was also instructed on the importance of pushing fluids staying well-hydrated and standing up slowly. Patient has not vomited since arrival. She looks great nontoxic looking smiling laughs easily. Toe X-Ray 12/04/18 00:00 IMPRESSION: Second digit fracture. 12/04/18 02:05 12/04/18 02:05 MCV 87 fl (80-97) 12/04/18 02:05 MCH 29.4 pg (27.0-33.4) 12/04/18 02:05 MCHC 33.9 g/dL (32.0-36.0) 12/04/18 02:05 RDW 13.0 % (11.5-14.0) 12/04/18 02:05 Seg Neutrophils % 67.6 % (42-78) 12/04/18 02:05 Chloride 100 mmol/L (98-107) 12/04/18 02:05 Carbon Dioxide 30 mmol/L (22-30) 12/04/18 02:05 Anion Gap 9 (5-19) 12/04/18 02:05 Est GFR ( Amer) > 60 (>60) 12/04/18 02:05 Glucose 122 mg/dL (75-110) H 12/04/18 02:05 Calcium 9.6 mg/dL (8.4-10.2) 12/04/18 02:05 Total Bilirubin 0.2 mg/dL (0.2-1.3) 12/04/18 02:05 AST 26 U/L (14-36) 12/04/18 02:05 Alkaline Phosphatase 57 U/L (38-126) 12/04/18 02:05 Total Protein 6.7 g/dL (6.3-8.2) 12/04/18 02:05 Albumin 4.2 g/dL (3.5-5.0) 12/04/18 02:05 - Vital Signs Vital signs: Temp Pulse Resp BP Pulse Ox 98.5 F 72 16 123/77 99 12/04/18 03:43 12/04/18 03:43 12/04/18 03:43 12/04/18 03:43 12/04/18 03:43 - Laboratory Result Diagrams: 12/04/18 02:05 12/04/18 02:05 Laboratory results interpreted by me: 12/04/18 12/04/18 02:05 02:05 WBC 10.9 H Eos % (Auto) 8.4 H Absolute Eos (auto) 0.9 H Glucose 122 H - Diagnostic Test Radiology reviewed: Image reviewed, Reports reviewed Discharge - Discharge Clinical Impression: Nausea & vomiting Qualifiers: Vomiting type: unspecified Vomiting Intractability: non-intractable Qualified Code(s): R11.2 - Nausea with vomiting, unspecified Syncope Qualifiers: Syncope type: vasovagal syncope Qualified Code(s): R55 - Syncope and collapse Fracture of toe of right foot Qualifiers: Encounter type: initial encounter Toe: unspecified toe Fracture type: closed Fracture alignment: nondisplaced Qualified Code(s): S92.911A - Unspecified fracture of right toe(s), initial encounter for closed fracture Condition: Stable Disposition: HOME, SELF-CARE Instructions: Monica Taping (toes) ([facility]), Fracture ([facility]), Near Syncopal Episode ([facility]), Vomiting ([facility]) Additional Instructions: *You have been evaluated for nausea/vomiting, syncope, toe fracture *monica tape your toes, wear good supporting shoes to protect your toes *Ensure adequate fluid intake to prevent dehydration Take ibuprofen as indicated for pain *Follow up with a primary care provider within one week for recheck and referral to orthopedics as indicated *Return to ED for worsening condition, changes, needs Referrals: CAMACHO TINAJERO, TIRE BAGGER-C [Primary Care Provider] - Follow up as needed
[2018-12-04 03:46] VITALS: BP 123/77
== END 2018-12-04 04:55 | disposition home or self-care (01) ==
LOC: ER 00:38
DX: R55 Syncope and collapse (principal); S92.514A Nondisplaced fracture of proximal phalanx of right lesser toe(s), initial encounter for closed fracture; X58.XXXA Exposure to other specified factors, initial encounter; Y93.89 Activity, other specified; R11.2 Nausea with vomiting, unspecified; J45.909 Unspecified asthma, uncomplicated; Z88.2 Allergy status to sulfonamides
CPT/HCPCS: 36415; 80053; 81025; 85025; 99284